=== PATIENT | female | born 1945 | race Caucasian/White ===

== ENCOUNTER 2017-09-18 20:21 | Emergency (ER) | payer OTHER ==
[~2017-09-18] VITALS: Ht 162.6 cm; Wt 73.0 kg
[~2017-09-18 20:21] MED LIST: CALC500 PO; LISI-589 PO; TAB-TAB PO; VYTO10TA29 PO
[2017-09-18 20:41] VITALS: BP 159/76; PULSE 95; RESP 18; TEMP 98.1; O2SAT 97
[2017-09-18] MEDS ORDERED: PRED20 PO (21:02)
[2017-09-18] MEDS ORDERED: PERC10TA27 PO (21:02)
--- NOTE | 2017-09-18 21:03 | PD ---
HPI Chief Complaint: Pain: Acute or Chronic Time Seen by Provider: 20:48 Travel History International Travel<30 days: No Contact w/Intl Traveler<30days: No Traveled to known affect area: No History of Present Illness HPI Patient is a 72-year-old female presents emergency department for evaluation of right hand numbness and tingling burning pain for the past day or so. Patient states to exacerbated whenever she tries to move her fingers. 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 She states this happened to her once in the past and is actually referred to a hand surgeon is a thought she might have carpal tunnel. She did well without surgery. States the pain is intermittent, fairly severe, not associated with any injury, no fevers no nausea no vomiting no weakness PFSH Past Medical History Blood Disorders: No Cancer: Yes Cardiovascular Problems: Yes High Cholesterol: Yes Genitourinary: No Hypertension: Yes Immune Disorder: No Musculoskeletal: No Neurologic: No Psychiatric: No Reproductive: No Respiratory: No Radiation Therapy: Yes (35 TREATMENTS ) ?: Not Past Surgical History Abdominal Surgery: Yes (APPENDECTOMY 1994) Appendectomy: Yes Cardiac Surgery: No Ear Surgery: No Endocrine Surgery: No Eye Surgery: No Genitourinary Surgery: Yes (ILEOSTOMY 1994) Gynecologic Surgery: Yes (HYSTERECTOMY 1994) Hysterectomy: Yes Oral Surgery: No Tonsillectomy: Yes Social History Alcohol Use: No Tobacco Use: No Substance Use: No Allergies-Medications (Allergen,Severity, Reaction): Coded Allergies: metronidazole (Unverified Allergy, Severe, EYE/MOUTH SWELLING, 09/18/17) naproxen (Unverified Allergy, Severe, EYE/MOUTH SWELLING, 09/18/17) Reported Meds & Prescriptions Reported Meds & Active Scripts Active Percocet (Oxycodone-Acetaminophen) 10-325 mg Tab 1 Tab PO Q6H PRN Prednisone 20 Mg Tab 60 Mg PO DAILY 5 Days Reported Omeprazole 20 Mg Tab 20 Mg PO DAILY Amlodipine (Amlodipine Besylate) 5 Mg Tab 5 Mg PO DAILY Lisinopril 40 Mg Tab 40 Mg PO DAILY Review of Systems Except as stated in HPI: all other systems reviewed are Neg Physical Exam Narrative GENERAL: Well-nourished, well-developed patient. SKIN: Focused skin assessment warm/dry. HEAD: Normocephalic. EYES: No scleral icterus. No injection or drainage. NECK: Supple, trachea midline. No JVD or lymphadenopathy. CARDIOVASCULAR: Regular rate and rhythm without murmurs, gallops, or rubs. RESPIRATORY: Breath sounds equal bilaterally. No accessory muscle use. GASTROINTESTINAL: Abdomen soft, non-tender, nondistended. MUSCULOSKELETAL: No cyanosis, or edema. There is no swelling no bony tenderness to the right hand or wrist, no bony tenderness of the right elbow. There is no gross deformity. Her compartments are soft. Cap refill is brisk in all 5 digits but there is some numbness and tingling that reported though she does have intact sensation to light touch. Tinel sign was negative but her Phalen's was positive. BACK: Nontender without obvious deformity. No CVA tenderness. Data Data Last Documented VS Vital Signs Date Time Temp Pulse Resp B/P (MAP) Pulse Ox O2 Delivery O2 Flow Rate FiO2 09/18/17 21:31 94 16 151/74 (99) 96 09/18/17 20:41 98.1 Orders Orders Oxycodone-Acetamin 5-325 Mg (Percocet (09/18/17 21:15) Ed Discharge Order (09/18/17 21:03) MDM Medical Decision Making Medical Screen Exam Complete: Yes Emergency Medical Condition: Yes Differential Diagnosis Carpal tunnel, ulnar tunnel, acute fracture highly unlikely. Narrative Course Patient room to the emergency department, sign symptoms consistent with carpal tunnel syndrome of the right hand and wrist. She has no symptoms proximal to the wrist. Will place on empiric steroids, pain medicine and referred to hand surgery. There is no indication further workup this time. Patient does have a wrist brace at home and she is encouraged to wear it as much as possible. She is stable for discharge Diagnosis Primary Impression: Carpal tunnel syndrome of right wrist Referrals: Liyah Jacob MD Med/Other Pt SpecificInfo: Prescription(s) given Scripts Oxycodone-Acetaminophen (Percocet) 10-325 mg Tab 1 TAB PO Q6H Y for PAIN, #10 TAB 0 Refills Prov: Tariq Marquis MD 09/18/17 Prednisone (Prednisone) 20 Mg Tab 60 MG PO DAILY for 5 Days, #15 TAB 0 Refills Prov: Tariq Marquis MD 09/18/17 Disposition: 01 DISCHARGE HOME Condition: Stable Tariq Marquis MD Sep 18, 2017 21:03
[2017-09-18] MEDS ORDERED: oxyCODONE/ACETAMINOPHEN 5 MG/325 MG TAB PO ONE (21:15)
[2017-09-18] MEDS ORDERED: OMEP20TA93 PO (21:16)
[2017-09-18] MEDS ORDERED: LISI40TA PO (21:16)
[2017-09-18] MEDS ORDERED: AMLO5TAB2 PO (21:16)
[2017-09-18 21:31] VITALS: BP 151/74
== END 2017-09-18 22:29 | disposition home or self-care (01) ==
LOC: PHED 20:21
DX: G56.01 Carpal tunnel syndrome, right upper limb (principal)
CPT/HCPCS: 99283

== ENCOUNTER 2018-04-16 18:25 | Inpatient (IN) ==
[2018-04-16] MEDS ORDERED: Morphine Sulfate Inj 2 MG/ML Vial IV.PUSH ONE (19:03)
[2018-04-16] MEDS ORDERED: Sod Chloride 0.9% Inj 1,000 ML IV.SIG ONE (19:03)
[2018-04-16 19:15] LABS: Baso # (Auto) 0.1 th/mm3 (0.0-0.2); Baso % (Auto) 0.5 % (0.0-2.0); Eos # (Auto) 0.1 th/mm3 (0.0-0.4); Eos % (Auto) 0.6 % (0.0-4.0); Hematocrit 42.7 % (35.0-46.0); Hemoglobin 14.2 gm/dL (11.6-15.3); Lymph # (Auto) 1.4 th/mm3 (1.0-4.8); Lymph % (Auto) 13.6 % (9.0-44.0); Mean Corpuscular HGB Conc 33.2 % (32.0-36.0); Mean Corpuscular Hemoglobin 28.9 pg (27.0-34.0); Mean Platelet Volume 7.4 fL (7.0-11.0); Mono # (Auto) 1.2 th/mm3 (0.0-0.9); Mono % (Auto) 11.3 % (0.0-8.0); Neut # (Auto) 7.8 th/mm3 (1.8-7.7); Platelet Count 216 th/mm3 (150-450); Red Blood Count 4.91 mil/mm3 (4.00-5.30); Red Cell Distribution Width 14.2 % (11.6-17.2); White Blood Count 10.6 th/mm3 (4.0-11.0)
[2018-04-16 19:25] LABS: Chloride 106 meq/L (98-107); Potassium 3.9 meq/L (3.5-5.1); Sodium 140 meq/L (136-145)
[2018-04-16 19:25] LABS: Clarity,Urine Clear (Clear); Glucose,Urine (UA) Negative (Negative); Leukocyte Esterase,Urine Trace (Negative); Nitrite,Urine Positive (Negative); Specific Gravity,Urine Greater/Equal 1.030 (1.002-1.035)
[2018-04-16 19:30] LABS: Bilirubin,Urine Negative (Negative); Color,Urine Orange (Yellw/Straw); Ictotest,Urine Negative (Negative)
[2018-04-16 19:30] LABS: Activated Partial Thrombo Time 24.5 sec (24.3-30.1); Calcium 9.3 mg/dL (8.5-10.1); INR 1.1 Ratio; Prothrombin Time 11.1 sec (9.8-11.6)
[2018-04-16] MEDS ORDERED: HYDROmorphone PF Inj 1 MG/ML Ampul IV.PUSH ONE (19:30)
[2018-04-16 19:31] LABS: Albumin 3.3 g/dL (3.4-5.0); Amylase 59 U/L (25-115); Anion Gap 11 meq/L (5-15); Blood Urea Nitrogen 16 mg/dL (7-18); Carbon Dioxide 23.1 meq/L (21.0-32.0); Glucose,Random 115 mg/dL (74-106); Lipase 196 U/L (73-393)
[2018-04-16 19:32] LABS: RBC,Urine 0-3 /hpf (0-3); Squamous Epithelial Cell,Urine 0-5 /hpf (0-5); WBC,Urine 21-50 /hpf (0-5)
[2018-04-16 19:33] LABS: Alanine Aminotransferase 25 U/L (10-53); Aspartate Aminotransferase 22 U/L (15-37)
[2018-04-16 19:33] LABS: Bacteria,Urine Few /hpf; Mucus,Urine Many /lpf (Occasional)
[2018-04-16 19:34] LABS: Glomerular Filtration Rate 49 mL/min (>89)
[2018-04-16 19:35] LABS: Total Protein 7.8 g/dL (6.4-8.2)
[2018-04-16 19:36] LABS: Alkaline Phosphatase 68 U/L (45-117)
[2018-04-16 19:44] LABS: Creatine Kinase 47 U/L (26-192)
[2018-04-16] MEDS ORDERED: HYDROmorphone PF Inj 2 MG/ML Vial IV.PUSH ONE (19:45)
--- NOTE | 2018-04-16 20:32 | CT ---
EXAM DATE: 04/16/2018 7:45 PM EDT AGE/SEX: 72 years / Female INDICATIONS: Chest pain. Shortness of breath. Evaluate for embolism. CLINICAL DATA: This is the patient's initial encounter. Patient reports that signs and symptoms have been present for 1 day and indicates a pain score of 10/10. MEDICAL/SURGICAL HISTORY: Carcinoma, breast. Hypertension. None. RADIATION DOSE: 12.96 CTDI (mGy) COMPARISON: No prior exams available for comparison. TECHNIQUE: Volumetric scanning was performed using a multi-row detector CT scanner during bolus infu judie of 100 ml Omnipaque 350 (iohexol) nonionic water-soluble contrast as a cumulative dose for mult iple exams. The data was post processed with a variety of visualization algorithms including full vol ume maximum intensity projection and sliding thin slab reformation. Using automated exposure control and adjustment of the mA and/or kV according to patient size, radiation dose was kept as low as reaso nably achievable to obtain optimal diagnostic quality images. DICOM format image data is available e lectronically for review and comparison. FINDINGS: Pulmonary Arteries: There is fairly extensive pulmonary emboli seen in the pulmonary supplying the r ight upper lobe, right middle lobe and right basilar segments. There is moderate emboli seen in the p ulmonary artery supplying the left upper lobe and at the basilar segments of the left lower lobe. Lung: There is increased density seen in the posterior lower lobes bilaterally being more prominent on the right likely related to atelectasis or consolidation. Effusion: There are minimal bilateral pleural effusions. Mediastinum: No evidence of mediastinal or hilar adenopathy. Other: The axilla is unremarkable. There is mild hiatal hernia present. CONCLUSION: 1. Bilateral pulmonary emboli. 2. Minimal bilateral pleural effusions. 3. Mild hiatal hernia. Electronically signed by: Koffi Silva MD 04/16/2018 8:31 PM EDT
--- NOTE | 2018-04-16 20:38 | CT ---
EXAM DATE: 04/16/2018 7:45 PM EDT AGE/SEX: 72 years / Female INDICATIONS: Right upper quadrant pain. CLINICAL DATA: This is the patient's initial encounter. Patient reports that signs and symptoms have been present for 1 day and indicates a pain score of 10/10. MEDICAL/SURGICAL HISTORY: Carcinoma, breast. Ulcerative colitis. Hypertension. Hysterectomy. Appendectomy. Ileostomy. ORAL CONTRAST: No oral contrast ingested. RADIATION DOSE: 15.62 CTDI (mGy) COMPARISON: POI, CT ABDOMEN AND PELVIS W/ CONTRAST, 08/07/2017. . TECHNIQUE: Multiple contiguous axial images were obtained through the abdomen and pelvis following b olus infusion of 100 ml Omnipaque 350 (iohexol) nonionic water-soluble contrast as a cumulative dos e for multiple exams. No oral contrast ingested. Using automated exposure control and adjustment of the mA and/or kV according to patient size, radiation dose was kept as low as reasonably achievable t o obtain optimal diagnostic quality images. DICOM format image data is available electronically for review and comparison. FINDINGS: LOWER LUNGS: Please see CT pulmonary angiogram report. LIVER: The liver has a homogeneous density without space-occupying lesion. There is no dilation of t he biliary tree. SPLEEN: Homogeneous density without enlargement. PANCREAS: Unremarkable without mass or calcification. KIDNEYS: Kidneys demonstrate symmetrical enhancement without radiopaque renal calculi or hydronephro sis. There is a dominant 3.4 cm cyst in the superior pole the right kidney. Multiple additional subce ntimeter cystic lesions are too small to fully characterize. ADRENAL GLANDS: Unremarkable. AORTA: Annemarie-aneurysmal. BOWEL/MESENTERY: Postsurgical features of near total colectomy with right lower quadrant ileostomy i n place. Bowel loops are normal in caliber without evidence for obstruction. There is no free fluid o r drainable fluid collections. There is no free air or pneumatosis. ABDOMINAL WALL: Diastasis recti. RETROPERITONEUM: No evidence of adenopathy in the retrocrural, para-aortic, or deep pelvic regions. BLADDER: Nearly completely decompressed. REPRODUCTIVE: Uterus is surgically absent. BONY STRUCTURES: Degenerative spondylosis of the lumbar spine with grade 1 retrolisthesis of L2 on L 3 and L5 on S1. CONCLUSION: 1. No acute CT findings to explain patient's right upper quadrant abdominal pain. 2. Status post near total colectomy with right lower quadrant ileostomy in place. No evidence for usman wel obstruction. 3. Dominant 3.4 cm cyst in the superior pole the right kidney with additional subcentimeter bilatera l renal cystic lesions which are too small to fully characterize. 4. Additional ancillary findings, as above. Electronically signed by: Sawyer Perrin MD 04/16/2018 8:37 PM EDT
[2018-04-16] MEDS ORDERED: Heparin Drip 25,000 UNIT/250 ML BAG IV.CONT PRN (20:53)
[2018-04-16] MEDS ORDERED: Heparin 10,000 UNITS/10 ML Vial (for IV use) IV.PUSH STA (20:53)
--- NOTE | 2018-04-16 21:01 | ED ---
HPI General Chief complaint: Abdominal Pain Stated complaint: Abd Pain Time Seen by Provider: 04/16/18 18:51 History of Present Illness HPI narrative: 72 female here for right upper quadrant pain since yesterday evening. Pain is sharp, stabbing, comes and goes, worse when she takes deep inspiration, nothing makes it better, no relation to food or movement. She does not remember eating anything out of the ordinary, no nausea or vomiting, no palpitation or sweating. Patient has history of hypertension, dyslipidemia, she has ileostomy bag was placed 1994 for ulcerative colitis, she also had a hysterectomy done 1994. She did not notice any change in the stool color or consistency or frequency. Related Data Home Medications Medication Instructions Recorded Confirmed amlodipine 5 mg PO HS 04/02/18 04/16/18 pravastatin 40 mg PO HS 04/02/18 04/16/18 latanoprost 1 drp OPHTHALMIC (EYE) QPM 04/16/18 04/16/18 Previous Rx's Medication Instructions Recorded apixaban [Eliquis] 5 mg PO BID #70 tab 04/18/18 hydrocodone-acetaminophen [[place]] 1 tab PO Q6H PRN #12 tab 04/18/18 Allergies Allergy/AdvReac Type Severity Reaction Status Date / Time metronidazole Allergy Severe EYE/MOUTH Verified 04/16/18 18:30 SWELLING Review of Systems ROS: all other systems reviewed are negative [facility] Medical History Medical History Breast cancer, left (Acute) Glaucoma (Acute) HTN (hypertension) (Acute) History of ulcerative colitis (Acute) Ileostomy in place (Acute) Paget disease of breast (Acute) Surgical History Surgical History History of appendectomy (Acute) History of cataract surgery (Acute) History of hysterectomy (Acute) History of tonsillectomy (Acute) Hx of tonsillectomy (Acute) Family History Family History Father History of lung cancer Mother History of stroke Social History Social History Substance History: No History of Abuse Second Hand Smoke Exposure: No Smoking Status: Never smoker How Often Do You Have a Drink Containing Alcohol: Never Recent Travel in [facility] within the Last 8 Weeks: No Recent Out of Country Travel within the Last 8 Weeks: No Immunization History Tetanus Immunization: <5 Years Exam Narrative Exam Narrative: GENERAL: Alert oriented x3 no acute distress. SKIN: Focused skin assessment warm/dry. HEAD: Atraumatic. Normocephalic. EYES: Pupils equal and round. No scleral icterus. No injection or drainage. ENT: No nasal bleeding or discharge. Mucous membranes pink and moist. NECK: Trachea midline. No JVD. CARDIOVASCULAR: Regular rate and rhythm. No murmur appreciated. RESPIRATORY: No accessory muscle use. Clear to auscultation. Breath sounds equal bilaterally. GASTROINTESTINAL: Abdomen soft, non-tender, nondistended. Hepatic and splenic margins not palpable. MUSCULOSKELETAL: No obvious deformities. No clubbing. No cyanosis. No edema. NEUROLOGICAL: Awake and alert. No obvious cranial nerve deficits. Motor grossly within normal limits. Normal speech. PSYCHIATRIC: Appropriate mood and affect; insight and judgment normal. Course Initial Documented Vital Signs Temperature 98.4 F 04/16/18 18:28 Pulse Rate 118 H 04/16/18 18:28 Respiratory Rate 20 04/16/18 18:28 Blood Pressure 139/71 04/16/18 18:28 Pulse Oximetry 92 L 04/16/18 18:28 Last Documented Vital Signs Temperature 96.3 F L 04/18/18 12:00 Pulse Rate 88 04/18/18 12:00 Respiratory Rate 18 04/18/18 12:00 Blood Pressure 121/77 04/18/18 12:00 Pulse Oximetry 92 L 04/18/18 12:00 Medical Decision Making MDM Narrative Medical decision making narrative: 72 female right upper quadrant pain, vitals remarkable for tachycardia, hypoxia, CT abdomen is unmarkable, CTA chest shows bilateral PE right more than left with Minimal bilateral pleural effusions, no evidence of RV strain on CAT scan, troponin and BNP are WNL, patient is not hypotensive. Patient had significant amount of pain in the right upper quadrant that required morphine and dilaudid, patient will be started on heparin drip and admitted for further management. Medical Screen Exam Complete: Yes Emergency Medical Condition: Yes Lab Data Result diagrams: 04/18/18 05:25 04/17/18 03:34 Lab Results 04/16/18 04/16/18 04/16/18 Range/Units 19:10 19:10 19:10 CBC w Diff Auto diff final WBC 10.6 (4.0-11.0) th/mm3 RBC 4.91 (4.00-5.30) mil/mm3 Hgb 14.2 (11.6-15.3) gm/dL Hct 42.7 (35.0-46.0) % MCV 87.0 (80.0-100.0) fL MCH 28.9 (27.0-34.0) pg MCHC 33.2 (32.0-36.0) % RDW 14.2 (11.6-17.2) % Plt Count 216 (150-450) th/mm3 MPV 7.4 (7.0-11.0) fL Neut % (Auto) 74.0 H (16.0-70.0) % Lymph % (Auto) 13.6 (9.0-44.0) % [place] % (Auto) 11.3 H (0.0-8.0) % Eos % (Auto) 0.6 (0.0-4.0) % Baso % (Auto) 0.5 (0.0-2.0) % Neut # (Auto) 7.8 H (1.8-7.7) th/mm3 Lymph # (Auto) 1.4 (1.0-4.8) th/mm3 [place] # (Auto) 1.2 H (0.0-0.9) th/mm3 Eos # (Auto) 0.1 (0.0-0.4) th/mm3 Baso # (Auto) 0.1 (0.0-0.2) th/mm3 WBC Differential . Differential Comment . PT 11.1 (9.8-11.6) sec INR 1.1 Ratio APTT 24.5 (24.3-30.1) sec D-Dimer Quant (PE/DVT) (0.00-0.50) mg/L FEU Protein C Antigen Protein S Activity Factor V Leiden Mutat Factor V Leiden Interp Fact V Leiden Review By Sodium 140 (136-145) meq/L Potassium 3.9 (3.5-5.1) meq/L Chloride 106 (98-107) meq/L Carbon Dioxide 23.1 (21.0-32.0) meq/L Anion Gap 11 (5-15) meq/L BUN 16 (7-18) mg/dL Creatinine 1.10 H (0.50-1.00) mg/dL Estimated GFR 49 L (>89) mL/min Random Glucose 115 H (74-106) mg/dL Lactic Acid (0.4-2.0) mmol/L Calcium 9.3 (8.5-10.1) mg/dL Total Bilirubin 0.9 (0.2-1.0) mg/dL AST 22 (15-37) U/L ALT 25 (10-53) U/L Alkaline Phosphatase 68 (45-117) U/L Total Creatine Kinase 47 (26-192) U/L Troponin I Less than 0.02 L (0.02-0.05) ng/mL B-Natriuretic Peptide (0-100) pg/mL Total Protein 7.8 (6.4-8.2) g/dL Albumin 3.3 L (3.4-5.0) g/dL Amylase 59 (25-115) U/L Lipase 196 (73-393) U/L Urine Color (Yellw/Straw) Urine Clarity (Clear) Urine pH (5.0-8.5) Ur Specific [place] (1.002-1.035) Urine Protein (Neg-Trace) mg/dL Urine Glucose (UA) (Negative) mg/dL Urine Ketones (Negative) mg/dL Urine Occult Blood (Negative) Urine Nitrate (Negative) Urine Bilirubin (Negative) Urine Ictotest (Negative) Urine Urobilinogen (Less than 2) mg/dL Ur Leukocyte Esterase (Negative) Urine RBC (0-3) /hpf Urine WBC (0-5) /hpf Urine WBC Clumps (None) Ur Squamous Epith Cells (0-5) /hpf Urine Bacteria (None) /hpf Urine Mucus (Occasional) /lpf Micro UA Comment Ur Microscopic Review Urine Culture Comments Anti-Cardiolipin IgG Ab Anti-Cardiolipin IgM Ab 04/16/18 04/16/18 04/16/18 Range/Units 19:10 19:10 19:15 CBC w Diff WBC (4.0-11.0) th/mm3 RBC (4.00-5.30) mil/mm3 Hgb (11.6-15.3) gm/dL Hct (35.0-46.0) % MCV (80.0-100.0) fL MCH (27.0-34.0) pg MCHC (32.0-36.0) % RDW (11.6-17.2) % Plt Count (150-450) th/mm3 MPV (7.0-11.0) fL Neut % (Auto) (16.0-70.0) % Lymph % (Auto) (9.0-44.0) % [place] % (Auto) (0.0-8.0) % Eos % (Auto) (0.0-4.0) % Baso % (Auto) (0.0-2.0) % Neut # (Auto) (1.8-7.7) th/mm3 Lymph # (Auto) (1.0-4.8) th/mm3 [place] # (Auto) (0.0-0.9) th/mm3 Eos # (Auto) (0.0-0.4) th/mm3 Baso # (Auto) (0.0-0.2) th/mm3 WBC Differential Differential Comment PT (9.8-11.6) sec INR Ratio APTT (24.3-30.1) sec D-Dimer Quant (PE/DVT) 12.73 H (0.00-0.50) mg/L FEU Protein C Antigen Protein S Activity Factor V Leiden Mutat Factor V Leiden Interp Fact V Leiden Review By Sodium (136-145) meq/L Potassium (3.5-5.1) meq/L Chloride (98-107) meq/L Carbon Dioxide (21.0-32.0) meq/L Anion Gap (5-15) meq/L BUN (7-18) mg/dL Creatinine (0.50-1.00) mg/dL Estimated GFR (>89) mL/min Random Glucose (74-106) mg/dL Lactic Acid 1.6 (0.4-2.0) mmol/L Calcium (8.5-10.1) mg/dL Total Bilirubin (0.2-1.0) mg/dL AST (15-37) U/L ALT (10-53) U/L Alkaline Phosphatase (45-117) U/L Total Creatine Kinase (26-192) U/L Troponin I (0.02-0.05) ng/mL B-Natriuretic Peptide (0-100) pg/mL Total Protein (6.4-8.2) g/dL Albumin (3.4-5.0) g/dL Amylase (25-115) U/L Lipase (73-393) U/L Urine Color [place] H (Yellw/Straw) Urine Clarity Clear (Clear) Urine pH 6.0 (5.0-8.5) Ur Specific [place] Greater/equal 1.030 (1.002-1.035) Urine Protein 100 H (Neg-Trace) mg/dL Urine Glucose (UA) Negative (Negative) mg/dL Urine Ketones 15 H (Negative) mg/dL Urine Occult Blood Moderate H (Negative) Urine Nitrate Positive H (Negative) Urine Bilirubin Negative (Negative) Urine Ictotest Negative (Negative) Urine Urobilinogen 1.0 (Less than 2) mg/dL Ur Leukocyte Esterase Trace H (Negative) Urine RBC 0-3 (0-3) /hpf Urine WBC 21-50 H (0-5) /hpf Urine WBC Clumps Few H (None) Ur Squamous Epith Cells 0-5 (0-5) /hpf Urine Bacteria Few H (None) /hpf Urine Mucus Many H (Occasional) /lpf Micro UA Comment Culture indicated Ur Microscopic Review Microscopic reviewed Urine Culture Comments Culture indicated Anti-Cardiolipin IgG Ab Anti-Cardiolipin IgM Ab 04/16/18 04/17/18 04/17/18 Range/Units 19:15 03:34 03:34 CBC w Diff Auto diff final WBC 10.8 (4.0-11.0) th/mm3 RBC 4.28 (4.00-5.30) mil/mm3 Hgb 12.3 (11.6-15.3) gm/dL Hct 37.5 (35.0-46.0) % MCV 87.6 (80.0-100.0) fL MCH 28.8 (27.0-34.0) pg MCHC 32.9 (32.0-36.0) % RDW 14.3 (11.6-17.2) % Plt Count 174 (150-450) th/mm3 MPV 7.3 (7.0-11.0) fL Neut % (Auto) 79.5 H (16.0-70.0) % Lymph % (Auto) 10.1 (9.0-44.0) % [place] % (Auto) 9.4 H (0.0-8.0) % Eos % (Auto) 0.0 (0.0-4.0) % Baso % (Auto) 1.0 (0.0-2.0) % Neut # (Auto) 8.6 H (1.8-7.7) th/mm3 Lymph # (Auto) 1.1 (1.0-4.8) th/mm3 [place] # (Auto) 1.0 H (0.0-0.9) th/mm3 Eos # (Auto) 0.0 (0.0-0.4) th/mm3 Baso # (Auto) 0.1 (0.0-0.2) th/mm3 WBC Differential . Differential Comment . PT 11.7 H (9.8-11.6) sec INR 1.2 Ratio APTT 116.1 H* D (24.3-30.1) sec D-Dimer Quant (PE/DVT) (0.00-0.50) mg/L FEU Protein C Antigen Protein S Activity Factor V Leiden Mutat Factor V Leiden Interp Fact V Leiden Review By Sodium (136-145) meq/L Potassium (3.5-5.1) meq/L Chloride (98-107) meq/L Carbon Dioxide (21.0-32.0) meq/L Anion Gap (5-15) meq/L BUN (7-18) mg/dL Creatinine (0.50-1.00) mg/dL Estimated GFR (>89) mL/min Random Glucose (74-106) mg/dL Lactic Acid (0.4-2.0) mmol/L Calcium (8.5-10.1) mg/dL Total Bilirubin (0.2-1.0) mg/dL AST (15-37) U/L ALT (10-53) U/L Alkaline Phosphatase (45-117) U/L Total Creatine Kinase (26-192) U/L Troponin I (0.02-0.05) ng/mL B-Natriuretic Peptide 24 (0-100) pg/mL Total Protein (6.4-8.2) g/dL Albumin (3.4-5.0) g/dL Amylase (25-115) U/L Lipase (73-393) U/L Urine Color (Yellw/Straw) Urine Clarity (Clear) Urine pH (5.0-8.5) Ur Specific [place] (1.002-1.035) Urine Protein (Neg-Trace) mg/dL Urine Glucose (UA) (Negative) mg/dL Urine Ketones (Negative) mg/dL Urine Occult Blood (Negative) Urine Nitrate (Negative) Urine Bilirubin (Negative) Urine Ictotest (Negative) Urine Urobilinogen (Less than 2) mg/dL Ur Leukocyte Esterase (Negative) Urine RBC (0-3) /hpf Urine WBC (0-5) /hpf Urine WBC Clumps (None) Ur Squamous Epith Cells (0-5) /hpf Urine Bacteria (None) /hpf Urine Mucus (Occasional) /lpf Micro UA Comment Ur Microscopic Review Urine Culture Comments Anti-Cardiolipin IgG Ab Anti-Cardiolipin IgM Ab 04/17/18 04/17/18 04/17/18 Range/Units 03:34 07:10 12:20 CBC w Diff WBC (4.0-11.0) th/mm3 RBC (4.00-5.30) mil/mm3 Hgb (11.6-15.3) gm/dL Hct (35.0-46.0) % MCV (80.0-100.0) fL MCH (27.0-34.0) pg MCHC (32.0-36.0) % RDW (11.6-17.2) % Plt Count (150-450) th/mm3 MPV (7.0-11.0) fL Neut % (Auto) (16.0-70.0) % Lymph % (Auto) (9.0-44.0) % [place] % (Auto) (0.0-8.0) % Eos % (Auto) (0.0-4.0) % Baso % (Auto) (0.0-2.0) % Neut # (Auto) (1.8-7.7) th/mm3 Lymph # (Auto) (1.0-4.8) th/mm3 [place] # (Auto) (0.0-0.9) th/mm3 Eos # (Auto) (0.0-0.4) th/mm3 Baso # (Auto) (0.0-0.2) th/mm3 WBC Differential Differential Comment PT (9.8-11.6) sec INR Ratio APTT 68.9 H D 54.2 H D (24.3-30.1) sec D-Dimer Quant (PE/DVT) (0.00-0.50) mg/L FEU Protein C Antigen Protein S Activity Factor V Leiden Mutat Factor V Leiden Interp Fact V Leiden Review By Sodium 141 (136-145) meq/L Potassium 3.8 (3.5-5.1) meq/L Chloride 106 (98-107) meq/L Carbon Dioxide 25.7 (21.0-32.0) meq/L Anion Gap 9 (5-15) meq/L BUN 15 (7-18) mg/dL Creatinine 0.74 (0.50-1.00) mg/dL Estimated GFR 77 L (>89) mL/min Random Glucose 122 H (74-106) mg/dL Lactic Acid (0.4-2.0) mmol/L Calcium 8.4 L D (8.5-10.1) mg/dL Total Bilirubin (0.2-1.0) mg/dL AST (15-37) U/L ALT (10-53) U/L Alkaline Phosphatase (45-117) U/L Total Creatine Kinase (26-192) U/L Troponin I (0.02-0.05) ng/mL B-Natriuretic Peptide (0-100) pg/mL Total Protein (6.4-8.2) g/dL Albumin (3.4-5.0) g/dL Amylase (25-115) U/L Lipase (73-393) U/L Urine Color (Yellw/Straw) Urine Clarity (Clear) Urine pH (5.0-8.5) Ur Specific [place] (1.002-1.035) Urine Protein (Neg-Trace) mg/dL Urine Glucose (UA) (Negative) mg/dL Urine Ketones (Negative) mg/dL Urine Occult Blood (Negative) Urine Nitrate (Negative) Urine Bilirubin (Negative) Urine Ictotest (Negative) Urine Urobilinogen (Less than 2) mg/dL Ur Leukocyte Esterase (Negative) Urine RBC (0-3) /hpf Urine WBC (0-5) /hpf Urine WBC Clumps (None) Ur Squamous Epith Cells (0-5) /hpf Urine Bacteria (None) /hpf Urine Mucus (Occasional) /lpf Micro UA Comment Ur Microscopic Review Urine Culture Comments Anti-Cardiolipin IgG Ab Anti-Cardiolipin IgM Ab 10/11/18 10/11/18 10/12/18 Range/Units 12:20 18:40 05:25 CBC w Diff WBC 6.5 (4.0-11.0) th/mm3 RBC 4.19 (4.00-5.30) mil/mm3 Hgb 11.9 (11.6-15.3) gm/dL Hct 36.8 (35.0-46.0) % MCV 87.7 (80.0-100.0) fL MCH 28.4 (27.0-34.0) pg MCHC 32.4 (32.0-36.0) % RDW 14.0 (11.6-17.2) % Plt Count 211 (150-450) th/mm3 MPV 7.9 (7.0-11.0) fL Neut % (Auto) (16.0-70.0) % Lymph % (Auto) (9.0-44.0) % [place] % (Auto) (0.0-8.0) % Eos % (Auto) (0.0-4.0) % Baso % (Auto) (0.0-2.0) % Neut # (Auto) (1.8-7.7) th/mm3 Lymph # (Auto) (1.0-4.8) th/mm3 [place] # (Auto) (0.0-0.9) th/mm3 Eos # (Auto) (0.0-0.4) th/mm3 Baso # (Auto) (0.0-0.2) th/mm3 WBC Differential Differential Comment PT (9.8-11.6) sec INR Ratio APTT 47.1 H (24.3-30.1) sec D-Dimer Quant (PE/DVT) (0.00-0.50) mg/L FEU Protein C Antigen Cancelled Protein S Activity Cancelled Factor V Leiden Mutat Cancelled Factor V Leiden Interp Cancelled Fact V Leiden Review By Cancelled Sodium (136-145) meq/L Potassium (3.5-5.1) meq/L Chloride (98-107) meq/L Carbon Dioxide (21.0-32.0) meq/L Anion Gap (5-15) meq/L BUN (7-18) mg/dL Creatinine (0.50-1.00) mg/dL Estimated GFR (>89) mL/min Random Glucose (74-106) mg/dL Lactic Acid (0.4-2.0) mmol/L Calcium (8.5-10.1) mg/dL Total Bilirubin (0.2-1.0) mg/dL AST (15-37) U/L ALT (10-53) U/L Alkaline Phosphatase (45-117) U/L Total Creatine Kinase (26-192) U/L Troponin I (0.02-0.05) ng/mL B-Natriuretic Peptide (0-100) pg/mL Total Protein (6.4-8.2) g/dL Albumin (3.4-5.0) g/dL Amylase (25-115) U/L Lipase (73-393) U/L Urine Color (Yellw/Straw) Urine Clarity (Clear) Urine pH (5.0-8.5) Ur Specific [place] (1.002-1.035) Urine Protein (Neg-Trace) mg/dL Urine Glucose (UA) (Negative) mg/dL Urine Ketones (Negative) mg/dL Urine Occult Blood (Negative) Urine Nitrate (Negative) Urine Bilirubin (Negative) Urine Ictotest (Negative) Urine Urobilinogen (Less than 2) mg/dL Ur Leukocyte Esterase (Negative) Urine RBC (0-3) /hpf Urine WBC (0-5) /hpf Urine WBC Clumps (None) Ur Squamous Epith Cells (0-5) /hpf Urine Bacteria (None) /hpf Urine Mucus (Occasional) /lpf Micro UA Comment Ur Microscopic Review Urine Culture Comments Anti-Cardiolipin IgG Ab Cancelled Anti-Cardiolipin IgM Ab Cancelled 04/18/18 Range/Units 05:25 CBC w Diff WBC (4.0-11.0) th/mm3 RBC (4.00-5.30) mil/mm3 Hgb (11.6-15.3) gm/dL Hct (35.0-46.0) % MCV (80.0-100.0) fL MCH (27.0-34.0) pg MCHC (32.0-36.0) % RDW (11.6-17.2) % Plt Count (150-450) th/mm3 MPV (7.0-11.0) fL Neut % (Auto) (16.0-70.0) % Lymph % (Auto) (9.0-44.0) % [place] % (Auto) (0.0-8.0) % Eos % (Auto) (0.0-4.0) % Baso % (Auto) (0.0-2.0) % Neut # (Auto) (1.8-7.7) th/mm3 Lymph # (Auto) (1.0-4.8) th/mm3 [place] # (Auto) (0.0-0.9) th/mm3 Eos # (Auto) (0.0-0.4) th/mm3 Baso # (Auto) (0.0-0.2) th/mm3 WBC Differential Differential Comment PT (9.8-11.6) sec INR Ratio APTT 55.1 H (24.3-30.1) sec D-Dimer Quant (PE/DVT) (0.00-0.50) mg/L FEU Protein C Antigen Protein S Activity Factor V Leiden Mutat Factor V Leiden Interp Fact V Leiden Review By Sodium (136-145) meq/L Potassium (3.5-5.1) meq/L Chloride (98-107) meq/L Carbon Dioxide (21.0-32.0) meq/L Anion Gap (5-15) meq/L BUN (7-18) mg/dL Creatinine (0.50-1.00) mg/dL Estimated GFR (>89) mL/min Random Glucose (74-106) mg/dL Lactic Acid (0.4-2.0) mmol/L Calcium (8.5-10.1) mg/dL Total Bilirubin (0.2-1.0) mg/dL AST (15-37) U/L ALT (10-53) U/L Alkaline Phosphatase (45-117) U/L Total Creatine Kinase (26-192) U/L Troponin I (0.02-0.05) ng/mL B-Natriuretic Peptide (0-100) pg/mL Total Protein (6.4-8.2) g/dL Albumin (3.4-5.0) g/dL Amylase (25-115) U/L Lipase (73-393) U/L Urine Color (Yellw/Straw) Urine Clarity (Clear) Urine pH (5.0-8.5) Ur Specific [place] (1.002-1.035) Urine Protein (Neg-Trace) mg/dL Urine Glucose (UA) (Negative) mg/dL Urine Ketones (Negative) mg/dL Urine Occult Blood (Negative) Urine Nitrate (Negative) Urine Bilirubin (Negative) Urine Ictotest (Negative) Urine Urobilinogen (Less than 2) mg/dL Ur Leukocyte Esterase (Negative) Urine RBC (0-3) /hpf Urine WBC (0-5) /hpf Urine WBC Clumps (None) Ur Squamous Epith Cells (0-5) /hpf Urine Bacteria (None) /hpf Urine Mucus (Occasional) /lpf Micro UA Comment Ur Microscopic Review Urine Culture Comments Anti-Cardiolipin IgG Ab Anti-Cardiolipin IgM Ab Imaging Data Radiologist's impression: Abdomen/Pelvis CT 04/16/18 19:35 CONCLUSION: 1. No acute CT findings to explain patient's right upper quadrant abdominal pain. 2. Status post near total colectomy with right lower quadrant ileostomy in place. No evidence for bowel obstruction. 3. Dominant 3.4 cm cyst in the superior pole the right kidney with additional subcentimeter bilateral renal cystic lesions which are too small to fully characterize. 4. Additional ancillary findings, as above. Chest CTA 04/16/18 19:35 CONCLUSION: 1. Bilateral pulmonary emboli. 2. Minimal bilateral pleural effusions. 3. Mild hiatal hernia. Discharge Plan Discharge Disposition Patient Disposition: 30 Still Patient Discharge Condition Condition: Stable Discharge Order Discharge Orders: Discharge Order (Routine); Ordered 04/18/18 Ordered By: Arias Valiente Discharge Details Anticipated Discharge Date: 04/18/18 Discharge Comment: Okay to discharge patient home after patient gets p.o. Eliquis Physicians Team ED Provider: Zafar Pena Primary Care Provider: Radha Kraft Attending Provider: Koby Horan Other Providers: Black Bill ; Jaxson Tesfaye ; [employer] Status ED Status: Left Department Discharge Information Discharge Date/Time: 04/16/18 22:56
[2018-04-16] MEDS ORDERED: Bisacodyl 10 MG Supp RECTAL PRN (21:30)
[2018-04-16] MEDS ORDERED: Acetaminophen 325 MG Tablet PO PRN (21:30)
--- NOTE | 2018-04-16 22:29 | ECG ---
Date Performed: 04/16/2018 Time Performed: 19:17:39 PTAGE: 72 years EKG: SINUS TACHYCARDIA ABNORMAL RHYTHM ECG NO PREVIOUS TRACING DOCTOR: Chavez Newton Interpretating Date/Time 04/16/2018 22:28:12
[2018-04-17 03:49] LABS: Baso # (Auto) 0.1 th/mm3 (0.0-0.2); Hematocrit 37.5 % (35.0-46.0); Hemoglobin 12.3 gm/dL (11.6-15.3); Lymph # (Auto) 1.1 th/mm3 (1.0-4.8); Lymph % (Auto) 10.1 % (9.0-44.0); Mean Corpuscular HGB Conc 32.9 % (32.0-36.0); Mean Corpuscular Hemoglobin 28.8 pg (27.0-34.0); Mean Corpuscular Volume 87.6 fL (80.0-100.0); Mean Platelet Volume 7.3 fL (7.0-11.0); Mono % (Auto) 9.4 % (0.0-8.0); Neut # (Auto) 8.6 th/mm3 (1.8-7.7); Neut % (Auto) 79.5 % (16.0-70.0); Platelet Count 174 th/mm3 (150-450); Red Blood Count 4.28 mil/mm3 (4.00-5.30); Red Cell Distribution Width 14.3 % (11.6-17.2); White Blood Count 10.8 th/mm3 (4.0-11.0)
[2018-04-17 03:54] LABS: Potassium 3.8 meq/L (3.5-5.1)
[2018-04-17 04:14] LABS: Calcium 8.4 mg/dL (8.5-10.1); Carbon Dioxide 25.7 meq/L (21.0-32.0)
[2018-04-17 04:18] LABS: INR 1.2 Ratio; Prothrombin Time 11.7 sec (9.8-11.6)
[2018-04-17 04:21] LABS: Activated Partial Thrombo Time 116.1 sec (24.3-30.1)
[2018-04-17] MEDS: Senna/Docusate Sodium 8.6/50 MG Tablet PO SCH ×2 (08:46→20:47)
--- NOTE | 2018-04-17 09:13 | P.HP ---
History of Present Illness Primary Care Physician: Radha Kraft MD Chief Complaint: Shortness of breath, chest pain History of Present Illness: 72-year-old female with known history of hypertension, hyperlipidemia , glaucoma, ulcerative colitis, arthritis who presented to the hospital because of right-sided chest pain, shortness of breath which progressively getting worse over the last day and a half. She indicates that is been more difficult to exert herself due to the shortness of breath. Every time she took a deep breath, cough she has severe pain in her right chest region. Patient did come to the emergency department and had workup done and found to have extensive bilateral pulmonary emboli's. Is recommended by the ER physician that the patient be admitted on IV heparin for further evaluation and management. Patient states that she used to have a very active lifestyle with going to [employer], exercising regularly and then her arthritis started bothering her more. She went to orthopedic doctor who started doing intra-articular injections of her left knee. The last injection was 2 weeks ago. On Saturday last week while she was out walking she did trip over a branch and fell down and hit her head. Patient did come to emergency department at that time and she states that she had a good eye contusion. Patient states that she has been more sedentary since then by not exercising and really not doing any physical activity. Patient also indicates that both her sons have the factor V Leiden mutation in which they have both had blood clots in the past. 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 She has not had any recurrence. - Diagnosis (1) Bilateral pulmonary embolism Inpatient Certification: I certify that the inpatient services were ordered in accordance with Medicare regulations governing the order. This includes certification that hospital inpatient services are reasonable and necessary and in the case of services not specified as inpatient-only under 42 CFR 419.22(n), that they are appropriately provided as inpatient services in accordance to with the 2-midnight benchmark under 43 CFR 412.3(e) Estimated Total Length of Stay (Days): 2 Plans for Post Hospital Care: Not yet determined Review of Systems All other systems reviewed negative except as stated in HPI Cardiovascular: Reports chest pain, Reports shortness of breath, Reports shortness of breath with activity PMFSH - History History Provided By: Patient - Medical History Medical History: Medical History (Last Updated 04/17/18 @ 09:03 by FLORENCE Morocho) Glaucoma HTN (hypertension) Paget disease of breast Breast cancer, left History of ulcerative colitis Ileostomy in place - Surgical History Surgical History: Surgical History (Last Updated 04/17/18 @ 09:03 by FLORENCE Morocho) History of appendectomy History of cataract surgery History of hysterectomy History of tonsillectomy Hx of tonsillectomy - Family History Family History: Family History (Last Updated 04/17/18 @ 08:55 by FLORENCE Morocho) Father History of lung cancer Mother History of stroke - Tobacco History Second Hand Smoke Exposure: No Tobacco Use In Past 30 Days: No Smoking Status: Never smoker - Alcohol History How Often Do You Have a Drink Containing Alcohol: Never - Substance Use History Substance History: No History of Abuse - Travel History [facility] Within the Last 8 Weeks: No Recent Travel Out of the Country Within the Last 8 Weeks: No - Immunization History Tetanus Immunization: Unable to Assess Hx Influenza Vaccine This Season: No Medications and Allergies Active Medications: Active Medications Acetaminophen (Tylenol) 650 mg PO Q4H PRN PRN Reason: Temp > 100.4 Last Admin: 04/17/18 04:32 Dose: 650 mg Al Hydroxide/Mg Hydroxide (Milk Of Magnesia Liq) 30 ml PO Q12H PRN PRN Reason: Mild Constipation Bisacodyl (Dulcolax Supp) 10 mg RECTAL DAILY PRN PRN Reason: SEVERE CONSITIPATION Heparin Sodium/Dextrose (Heparin/D5w 25,000 U/250 Ml) 25,000 unit in 250 mls @ 0 mls/hr IV.CONT TITRATE PRN; Protocol PRN Reason: Per Protocol Last Titration: 04/17/18 05:30 Dose: 1,000 units/hr, 10 mls/hr Ceftriaxone Sodium 1,000 mg/ (Sodium Chloride) 100 mls @ 200 mls/hr IV.SIG Q24H SHELTON Last Infusion: 04/17/18 00:35 Dose: Infused Lactulose (Lactulose Liq) 30 ml PO DAILY PRN PRN Reason: SEVERE CONSITIPATION Ondansetron HCl (Zofran Inj) 4 mg IV.PUSH Q6H PRN PRN Reason: NAUSEA OR VOMITING Senna/Docusate Sodium (Jazmine-Colace) 1 tab PO BID SHELTON Last Admin: 04/17/18 08:46 Dose: Not Given Sennosides (Senokot) 17.2 mg PO Q12H PRN PRN Reason: Moderate Constipation Allergies Allergy/AdvReac Type Severity Reaction Status Date / Time metronidazole Allergy Severe EYE/MOUTH Verified 04/16/18 18:30 SWELLING Home Medications Medication Instructions Recorded Confirmed Type amlodipine 5 mg PO HS 04/02/18 04/16/18 History pravastatin 40 mg PO HS 04/02/18 04/16/18 History latanoprost 1 drp OPHTHALMIC (EYE) QPM 04/16/18 04/16/18 History Exam Vital signs: Vital Signs 04/16/18 18:28 04/16/18 19:23 04/16/18 21:30 Temperature 98.4 F 98.2 F Pulse Rate 118 H 115 H 87 Respiratory Rate 20 20 20 Blood Pressure 139/71 148/85 H 142/74 H Pulse Oximetry 92 L 95 94 L 04/16/18 23:32 04/17/18 00:00 04/17/18 02:25 Temperature 96.4 F L Pulse Rate 86 85 Respiratory Rate 20 18 Blood Pressure 127/62 Pulse Oximetry 100 04/17/18 08:00 04/17/18 08:12 Temperature 98.4 F Pulse Rate 85 87 Respiratory Rate 16 Blood Pressure 122/62 Pulse Oximetry 92 L Intake & Output 04/16/18 04/17/18 04/17/18 18:59 06:59 18:59 Intake Total 1669 / 1669 Balance 1669 / 1669 Weight 71.1 kg 72 kg Intake: IV 1189 / 1189 Heparin/D5W 25,000 U/250 mL 25, 89 / 89 000 unit In 250 ml @ Per Protocol IV.CONT TITRATE PRN Rx #:[id number] NS Inj 1,000 ML @ Wide Open IV. 1000 / 1000 SIG BOLUS ONE Rx#:[id number] Rocephin Inj 1,000 MG In NS Inj 100 / 100 100 ML @ 200 mls/hr IV.SIG Q24H SHELTON Rx#:[id number] Oral 480 / 480 Other: # Voids 1 Weight On Admission 71 kg Narrative: GENERAL: Well-developed, well-nourished, in no acute distress. alert and orientated HEENT: Head is normocephalic without any lesions or masses noted. Facial features are symmetric. Eyes: Pupils equal round reactive to light. Extraocular muscles are intact. Conjunctivae were clear. Oropharyngeal: Pharynx without any erythema edema. Tongue is midline without deviation. Buccal mucosa is moist without any masses or lesions NECK: Supple without any masses. Trachea midline no deviation. No JVD, no bruits are appreciated CARDIAC: Regular rhythm, regular rate. S1/S2 are heard. No murmurs gallops or rubs. LUNGS: Clear to auscultation bilaterally. No wheeze, rhonchi or rales. No use of accessory muscles on inspiration or expiration. ABDOMEN: Soft, nontender. Nondistended. Bowel sounds heard in all 4 quadrants. No organomegaly or masses. Negative rebound, negative guarding EXTREMITIES: No edema, pulses are equal bilaterally. No cyanosis or clubbing NEUROLOGY: Mood and affect appear appropriate. Cranial nerves II through XII grossly intact. Muscle strength 5/5 in upper and lower extremities bilaterally. Deep tendon reflexes are 2+ in upper and lower extremities bilaterally. Results - Labs CBC & Chem 7: 04/17/18 03:34 04/17/18 03:34 Labs: Laboratory Results - last 24 hr 04/16/18 04/16/18 04/16/18 19:10 19:10 19:10 CBC w Diff Auto diff final WBC 10.6 RBC 4.91 Hgb 14.2 Hct 42.7 MCV 87.0 MCH 28.9 MCHC 33.2 RDW 14.2 Plt Count 216 MPV 7.4 Neut % (Auto) 74.0 H Lymph % (Auto) 13.6 [place] % (Auto) 11.3 H Eos % (Auto) 0.6 Baso % (Auto) 0.5 Neut # (Auto) 7.8 H Lymph # (Auto) 1.4 [place] # (Auto) 1.2 H Eos # (Auto) 0.1 Baso # (Auto) 0.1 WBC Differential . Differential Comment . PT 11.1 INR 1.1 APTT 24.5 D-Dimer Quant (PE/DVT) Sodium 140 Potassium 3.9 Chloride 106 Carbon Dioxide 23.1 Anion Gap 11 BUN 16 Creatinine 1.10 H Estimated GFR 49 L Random Glucose 115 H Lactic Acid Calcium 9.3 Total Bilirubin 0.9 AST 22 ALT 25 Alkaline Phosphatase 68 Total Creatine Kinase 47 Troponin I Less than 0.02 L B-Natriuretic Peptide Total Protein 7.8 Albumin 3.3 L Amylase 59 Lipase 196 Urine Color Urine Clarity Urine pH Ur Specific [place] Urine Protein Urine Glucose (UA) Urine Ketones Urine Occult Blood Urine Nitrate Urine Bilirubin Urine Ictotest Urine Urobilinogen Ur Leukocyte Esterase Urine RBC Urine WBC Urine WBC Clumps Ur Squamous Epith Cells Urine Bacteria Urine Mucus Micro UA Comment Ur Microscopic Review Urine Culture Comments 04/16/18 04/16/18 04/16/18 19:10 19:10 19:15 CBC w Diff WBC RBC Hgb Hct MCV MCH MCHC RDW Plt Count MPV Neut % (Auto) Lymph % (Auto) [place] % (Auto) Eos % (Auto) Baso % (Auto) Neut # (Auto) Lymph # (Auto) [place] # (Auto) Eos # (Auto) Baso # (Auto) WBC Differential Differential Comment PT INR APTT D-Dimer Quant (PE/DVT) 12.73 H Sodium Potassium Chloride Carbon Dioxide Anion Gap BUN Creatinine Estimated GFR Random Glucose Lactic Acid 1.6 Calcium Total Bilirubin AST ALT Alkaline Phosphatase Total Creatine Kinase Troponin I B-Natriuretic Peptide Total Protein Albumin Amylase Lipase Urine Color [place] H Urine Clarity Clear Urine pH 6.0 Ur Specific [place] Greater/equal 1.030 Urine Protein 100 H Urine Glucose (UA) Negative Urine Ketones 15 H Urine Occult Blood Moderate H Urine Nitrate Positive H Urine Bilirubin Negative Urine Ictotest Negative Urine Urobilinogen 1.0 Ur Leukocyte Esterase Trace H Urine RBC 0-3 Urine WBC 21-50 H Urine WBC Clumps Few H Ur Squamous Epith Cells 0-5 Urine Bacteria Few H Urine Mucus Many H Micro UA Comment Culture indicated Ur Microscopic Review Microscopic reviewed Urine Culture Comments Culture indicated 04/16/18 04/17/18 04/17/18 19:15 03:34 03:34 CBC w Diff Auto diff final WBC 10.8 RBC 4.28 Hgb 12.3 Hct 37.5 MCV 87.6 MCH 28.8 MCHC 32.9 RDW 14.3 Plt Count 174 MPV 7.3 Neut % (Auto) 79.5 H Lymph % (Auto) 10.1 [place] % (Auto) 9.4 H Eos % (Auto) 0.0 Baso % (Auto) 1.0 Neut # (Auto) 8.6 H Lymph # (Auto) 1.1 [place] # (Auto) 1.0 H Eos # (Auto) 0.0 Baso # (Auto) 0.1 WBC Differential . Differential Comment . PT 11.7 H INR 1.2 APTT 116.1 H* D D-Dimer Quant (PE/DVT) Sodium Potassium Chloride Carbon Dioxide Anion Gap BUN Creatinine Estimated GFR Random Glucose Lactic Acid Calcium Total Bilirubin AST ALT Alkaline Phosphatase Total Creatine Kinase Troponin I B-Natriuretic Peptide 24 Total Protein Albumin Amylase Lipase Urine Color Urine Clarity Urine pH Ur Specific [place] Urine Protein Urine Glucose (UA) Urine Ketones Urine Occult Blood Urine Nitrate Urine Bilirubin Urine Ictotest Urine Urobilinogen Ur Leukocyte Esterase Urine RBC Urine WBC Urine WBC Clumps Ur Squamous Epith Cells Urine Bacteria Urine Mucus Micro UA Comment Ur Microscopic Review Urine Culture Comments 04/17/18 04/17/18 03:34 07:10 CBC w Diff WBC RBC Hgb Hct MCV MCH MCHC RDW Plt Count MPV Neut % (Auto) Lymph % (Auto) [place] % (Auto) Eos % (Auto) Baso % (Auto) Neut # (Auto) Lymph # (Auto) [place] # (Auto) Eos # (Auto) Baso # (Auto) WBC Differential Differential Comment PT INR APTT 68.9 H D D-Dimer Quant (PE/DVT) Sodium 141 Potassium 3.8 Chloride 106 Carbon Dioxide 25.7 Anion Gap 9 BUN 15 Creatinine 0.74 Estimated GFR 77 L Random Glucose 122 H Lactic Acid Calcium 8.4 L D Total Bilirubin AST ALT Alkaline Phosphatase Total Creatine Kinase Troponin I B-Natriuretic Peptide Total Protein Albumin Amylase Lipase Urine Color Urine Clarity Urine pH Ur Specific Brewer Urine Protein Urine Glucose (UA) Urine Ketones Urine Occult Blood Urine Nitrate Urine Bilirubin Urine Ictotest Urine Urobilinogen Ur Leukocyte Esterase Urine RBC Urine WBC Urine WBC Clumps Ur Squamous Epith Cells Urine Bacteria Urine Mucus Micro UA Comment Ur Microscopic Review Urine Culture Comments - Imaging Impressions Abdomen/Pelvis CT 04/16/18 19:35 CONCLUSION: 1. No acute CT findings to explain patient's right upper quadrant abdominal pain. 2. Status post near total colectomy with right lower quadrant ileostomy in place. No evidence for bowel obstruction. 3. Dominant 3.4 cm cyst in the superior pole the right kidney with additional subcentimeter bilateral renal cystic lesions which are too small to fully characterize. 4. Additional ancillary findings, as above. Chest CTA 04/16/18 19:35 CONCLUSION: 1. Bilateral pulmonary emboli. 2. Minimal bilateral pleural effusions. 3. Mild hiatal hernia. Caprini VTE Risk Assessment Caprini VTE Risk Assessment: Moderate/High Risk (score >= 2) Caprini Risk Assessment Model: Point Value = 1 Point Value = 2 Point Value = 3 Point Value = 5 Age 41-60 Minor surgery BMI > 25 kg/m2 Swollen legs Varicose veins or History of unexplained or recurrent spontaneous Oral contraceptives or hormone replacement Sepsis (< 1 month) Serious lung disease, including pneumonia (< 1 month) Abnormal pulmonary function Acute myocardial infarction Congestive heart failure (< 1 month) History of inflammatory bowel disease Medical patient at bed rest Age 61-74 Arthroscopic surgery Major open surgery (> 45 min) Laparoscopic surgery (> 45 min) Malignancy Confined to bed (> 72 hours) Immobilizing plaster cast Central venous access Age >= 75 History of VTE Family history of VTE Factor V Leiden Prothrombin [id number] Lupus anticoagulant Anticardiolipin antibodies Elevated serum homocysteine Heparin-induced thrombocytopenia Other congenital or acquired thrombophilia Stroke (< 1 month) Elective arthroplasty Hip, pelvis, or leg fracture Acute spinal cord injury (< 1 month) Prophylaxis Regimen: Total Risk Factor Score Risk Level Prophylaxis Regimen 0-1 Low Early ambulation 2 Moderate Order ONE of the following: *Sequential Compression Device (SCD) *Heparin 5000 units SQ BID 3-4 Higher Order ONE of the following medications: *Heparin 5000 units SQ TID *Enoxaparin/Lovenox 40 mg SQ daily (WT < 150 kg, CrCl > 30 mL/min) *Enoxaparin/Lovenox 30 mg SQ daily (WT < 150 kg, CrCl > 10-29 mL/min) *Enoxaparin/Lovenox 30 mg SQ BID (WT < 150 kg, CrCl > 30 mL/min) AND/OR *Sequential Compression Device (SCD) 5 or more Highest Order ONE of the following medications: *Heparin 5000 units SQ TID (Preferred with Epidurals) *Enoxaparin/Lovenox 40 mg SQ daily (WT < 150 kg, CrCl > 30 mL/min) *Enoxaparin/Lovenox 30 mg SQ daily (WT < 150 kg, CrCl > 10-29 mL/min) *Enoxaparin/Lovenox 30 mg SQ BID (WT < 150 kg, CrCl > 30 mL/min) AND *Sequential Compression Device (SCD) Assessment and Plan - Assessment (1) Bilateral pulmonary embolism Code(s): I26.99 - Other pulmonary embolism without acute cor pulmonale Status : Acute - Plan Bilateral pulmonary emboli -72 year-old female presented originally with shortness of breath, dyspnea on exertion, right-sided chest discomfort -Patient with increased risk factors to include recent sedentary lifestyle, intra-articular steroid injections, recent fall, family history of factor V Leiden mutation -Patient currently on heparin IV for anticoagulation, patient is requesting Eliquis for oral anticoagulation -Hematology consulted for further recommendations -Employment Officer consulted -Obtain hypercoagulable panel Urinary tract infection -Continue monitor urine culture -Start Bactrim DS twice daily hypertension, hyper lipidemia -Home medication will be continued DVT prevention -Patient is on heparin IV
--- NOTE | 2018-04-17 10:30 | ECHRPT ---
Indication: Heart Failure CONCLUSIONS No evidence of thromboembolic source identified. Consider MISA for further evaluation. The left ventricular systolic function is normal with an estimated ejection fraction in the range of 55-60%. There is mild tricuspid valve regurgitation. The estimated pulmonary arterial pressure is 51 mmHg. BP: / HR: Rhythm: MEASUREMENTS (Male / Female) Normal Values Technical Quality:Fair 2D ECHO LV Diastolic Diameter PLAX 4.1 cm 4.2 - 5.9 / 3.9 - 5.3 cm LV Systolic Diameter PLAX 2.5 cm IVS Diastolic Thickness 0.9 cm 0.6 - 1.0 / 0.6 - 0.9 cm LVPW Diastolic Thickness 0.9 cm 0.6 - 1.0 / 0.6 - 0.9 cm LV Relative Wall Thickness 0.4 RV Internal Dim ED PLAX 3.3 cm LVOT Diameter 2.0 cm Aortic Root Diameter 2.7 cm LA Systolic Diameter LX 3.5 cm 3.0 - 4.0 / 2.7 - 3.8 cm M-MODE AV Cusp Separation MM 2.0 cm DOPPLER AV Peak Velocity 128.0 cm/s AV Peak Gradient 6.6 mmHg LVOT Peak Velocity 111.0 cm/s LVOT Peak Gradient 4.9 mmHg AV Area Cont Eq pk 2.7 cm Mitral E Point Velocity 85.5 cm/s Mitral A Point Velocity 128.0 cm/s Mitral E to A Ratio 0.7 LV E' Lateral Velocity 9.7 cm/s Mitral E to LV E' Lateral Ratio 8.9 LV E' Septal Velocity 7.9 cm/s Mitral E to LV E' Septal Ratio 10.8 TR Peak Velocity 320.0 cm/s TR Peak Gradient 41.0 mmHg Right Atrial Pressure 10.0 mmHg Pulmonary Artery Systolic Pressu 51.0 mmHg Right Ventricular Systolic Press 51.0 mmHg PV Peak Velocity 92.3 cm/s PV Peak Gradient 3.4 mmHg FINDINGS LEFT VENTRICLE Normal left ventricular size. Wall thickness is normal. The left ventricular systolic function is normal with an estimated ejection fraction in the range of 55-60%. RIGHT VENTRICLE Normal right ventricular size and systolic function. LEFT ATRIUM The left atrial size is normal. RIGHT ATRIUM The right atrial size is normal. ATRIAL SEPTUM Normal atrial septal thickness without atrial level shunting by limited color doppler interrogation. AORTA The aortic root and proximal ascending aorta are normal in size on limited imaging. MITRAL VALVE [id number] mitral valve regurgitation. AORTIC VALVE Trileaflet aortic valve. TRICUSPID VALVE There is mild tricuspid valve regurgitation. The estimated pulmonary arterial pressure is 51 mmHg. PULMONARY VALVE No pulmonary valve regurgitation or stenosis. VESSELS The inferior vena cava is normal in size. PERICARDIUM No pericardial effusion. Rafa Dominguez MD (Electronically Signed) Final Date:17 April 2018 10:29
--- NOTE | 2018-04-17 17:32 | MB ---
cc: Black Bill MD,Radha Son MD DATE: 04/17/2018 REQUESTING PHYSICIAN: Dr. Koby Horan REASON FOR VISIT: Bilateral pulmonary emboli. HISTORY OF PRESENT ILLNESS: Ms. Lehman is a pleasant 72-year-old female with history of hypertension, hyperlipidemia, ulcerative colitis, status post colectomy and ileostomy. She also has history of Paget disease of the breast. She had a nipple removed and had radiation treatment. Normally, she is very active. She came to the hospital with sudden onset of pain in the right lower chest. CT scan of the abdomen was normal other than signs of previous near total colectomy. Next she had echocardiogram done, which shows ejection fraction is 55% to 60% and pulmonary arterial pressure is 51. She feels very comfortable, pain has eased off. She is currently on room air. PAST MEDICAL HISTORY: Significant for a history of hypertension, hyperlipidemia, glaucoma, history of cholecystectomy, ulcerative colitis, status post subtotal colectomy and ileostomy, history of Paget, disease of the breast, status post nipple removal and radiation treatment. MEDICATIONS: 1. Tylenol. 2. Ararat for pain. 3. Norvasc 5 mg a day. 4. Heparin IV drip. 5. Zofran p.r.n. 6. Jazmine-Colace twice a day. 7. Bactrim DS 1 tablet every 12 hours. ALLERGIES: SHE IS ALLERGIC TO FLAGYL. SOCIAL HISTORY: She has a remote history of smoking when she was young. No alcohol abuse. 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 FAMILY HISTORY: She has 2 children, 1 son has embolism and also has factor V Leiden mutation. REVIEW OF SYSTEMS: Normally, she is active. Weight is stable. No sz. PHYSICAL EXAMINATION: GENERAL: This is a pleasant, elderly female, not in any acute distress. VITAL SIGNS: Blood pressure 130/71, heart rate 80, respirations 16, temperature 97.4, saturation 94% on room air. HEENT: Pupils are equal and reactive to light. Oral mucosa and nasal mucosa normal. NECK: No JVD noted. CHEST: Bilateral good air entry. No rhonchi. HEART: S1, S2 normal. ABDOMEN: Soft, nondistended. Bowel sounds present. She has ileostomy. EXTREMITIES: No edema. IMPRESSION: 1. Bilateral pulmonary emphysema, small pleural effusion. 2. Ulcerative colitis, status post ileostomy. 3. History of Paget disease of the breast. 4. Hypertension. PLAN: Discussed with the patient and her . She will be maintained on a heparin drip and she will be transitioned to a newer oral anticoagulant. I discussed with the patient and her the risks, benefits and the risk of anticoagulation and they understand well. She is currently stable on room air. Monitor her pleural effusion. We will check her Factor V mutation. Further treatment will depend upon the course in the hospital. Thank you Dr. Horan for this consult. Black Bill MD ADA/ct/ll , 04:50 PM , 04:58 PM MTDGhassan
--- NOTE | 2018-04-17 19:16 | MB ---
cc: Anna Lopez MD DATE: 04/17/2018 CHIEF COMPLAINT: Pulmonary embolism. HISTORY OF PRESENT ILLNESS: Ms. Lehman is a 72-year-old lady with history of hypertension, hyperlipidemia, ulcerative colitis, status post colectomy with ileostomy placement, as well as Paget disease of the breast, status post surgery and radiation therapy. She was admitted to the hospital on 04/16/2018 with a 2-day history of worsening shortness of breath, as well as right-sided chest pain. CTA showed bilateral pulmonary embolism, minimal bilateral pleural effusions, and mild hiatal hernia. CT scan of the abdomen and pelvis with status post near total colectomy with right lower quadrant ileostomy in place. No evidence for bowel obstruction, dominant 3.4 cm cyst on the superior pole in the right kidney with adjacent subcentimeter bilateral renal cystic lesions, which are too small to fully characterize. PAST MEDICAL HISTORY: 1. Hypertension. 2. Hyperlipidemia. 3. Ulcerative colitis. 4. Paget disease of the breast. PAST SURGICAL HISTORY: Hysterectomy, ileostomy, cataract surgery, tonsillectomy, breast surgery. GYNECOLOGIC HISTORY: She has had 2 pregnancies with no issues. No clotting during the . SOCIAL HISTORY: She lives in [place]. She has rare alcohol use. Denies any tobacco use. FAMILY HISTORY: Her son is homozygous for factor V Leiden. He has a clot and is currently on Eliquis therapy. PHYSICAL EXAMINATION: VITAL SIGNS: Temperature 97.4, pulse 80, respiratory rate 16, blood pressure 130/71. GENERAL: Well-developed, well-nourished lady, in no distress, sitting comfortably in bed. HEENT: Normocephalic, atraumatic. Eyes: PERRLA. EOMI. NECK: Supple. No palpable lymphadenopathy. CARDIOVASCULAR: Regular rate and rhythm. No murmurs. RESPIRATORY: Clear to auscultation bilaterally. ABDOMEN: Soft. No tenderness or masses. EXTREMITIES: No edema. NEUROLOGIC: Grossly nonfocal. PSYCHIATRIC: Appropriate mood and affect. ASSESSMENT AND PLAN: Bilateral pulmonary embolism. Echocardiogram with no evidence of right heart strain. She is currently on heparin drip. Discussed options for outpatient anticoagulation with the patient and her . Discussed options to include warfarin versus Xarelto versus apixaban. Discussed risks versus benefits of each medication including reversal agents. Discussed that the major side effect of any blood thinner is bleeding including devastating bleeding in the brain and spinal cord. The patient voiced understanding. She will need to be on indefinite anticoagulation therapy as her clot is unprovoked. Her son has a history positive for factor V Leiden. Will followup factor V Leiden. Hypercoagulable workup has been ordered; however, in this situation, it would not change our final outcome. We will followup the results. The patient reports that she would like to be discharged home on Eliquis; however, she would like to discuss with case management to ensure that this medication would not be too expensive. MD SOLITARIO Villalobos/ , 06:53 PM , 07:01 PM
[2018-04-17 20:01] VITALS: RESP 18
[2018-04-17] MEDS ORDERED: amLODIPine 5 MG Tablet PO SCH (21:00)
[2018-04-18 06:49] LABS: Hematocrit 36.8 % (35.0-46.0); Hemoglobin 11.9 gm/dL (11.6-15.3); Mean Corpuscular HGB Conc 32.4 % (32.0-36.0); Mean Corpuscular Hemoglobin 28.4 pg (27.0-34.0); Mean Corpuscular Volume 87.7 fL (80.0-100.0); Mean Platelet Volume 7.9 fL (7.0-11.0); Platelet Count 211 th/mm3 (150-450); Red Blood Count 4.19 mil/mm3 (4.00-5.30); White Blood Count 6.5 th/mm3 (4.0-11.0)
[2018-04-18] MEDS: Senna/Docusate Sodium 8.6/50 MG Tablet PO SCH (08:57)
--- NOTE | 2018-04-18 11:23 | P.PN ---
Subjective Interval history: 72-year-old female who is seen and examined today for follow-up on pulmonary emboli. Patient is doing well. Still having pain in her right side of her chest. Disc asked with her and her about anticoagulation with Eliquis. Patient does understand. The would like to find out if there are insurance will cover the medication. Vital signs are stable. Patient remains afebrile. Physical Exam Vital signs: Vital Signs 04/17/18 11:59 04/17/18 16:00 04/17/18 20:00 Temperature 98.0 F 97.4 F L 97.4 F L Pulse Rate 81 80 98 H Respiratory Rate 16 18 Blood Pressure 137/80 130/71 147/67 H Pulse Oximetry 94 L 94 L 94 L 04/18/18 00:00 04/18/18 04:00 04/18/18 08:00 Temperature 97.6 F 97.0 F L 97.4 F L Pulse Rate 85 81 87 Respiratory Rate 18 Blood Pressure 140/62 130/82 133/68 Pulse Oximetry 94 L 93 L 93 L Intake & Output 04/17/18 04/18/18 04/18/18 18:59 06:59 18:59 Intake Total 960 / 960 Balance 960 / 960 Weight 72.4 kg Intake: Oral 960 / 960 Other: # Voids 6 3 # Bowel Movements 0 Narrative: GENERAL: Well-developed, well-nourished, in no acute distress. alert and orientated HEENT: Head is normocephalic without any lesions or masses noted. Facial features are symmetric. Eyes: Extraocular muscles are intact. Conjunctivae were clear. NECK: Supple without any masses. Trachea midline no deviation. No JVD, CARDIAC: Regular rhythm, regular rate. S1/S2 are heard. No murmurs gallops or rubs. LUNGS: Clear to auscultation bilaterally. No wheeze, rhonchi or rales. No use of accessory muscles on inspiration or expiration. ABDOMEN: Soft, nontender. Nondistended. Bowel sounds heard in all 4 quadrants. No organomegaly or masses. Negative rebound, negative guarding EXTREMITIES: No edema, pulses are equal bilaterally. No cyanosis or clubbing NEUROLOGY: Mood and affect appear appropriate. Cranial nerves II through XII grossly intact. Moving all extremities, speech is clear Results - Labs CBC & Chem 7: 04/18/18 05:25 04/17/18 03:34 Laboratory Results - last 24 hr 04/17/18 04/17/18 04/17/18 12:20 12:20 18:40 WBC RBC Hgb Hct MCV MCH MCHC RDW Plt Count MPV APTT 54.2 H D 47.1 H Protein C Antigen Cancelled Protein S Activity Cancelled Factor V Leiden Mutat Cancelled Factor V Leiden Interp Cancelled Fact V Leiden Review By Cancelled Anti-Cardiolipin IgG Ab Cancelled Anti-Cardiolipin IgM Ab Cancelled 04/18/18 04/18/18 05:25 05:25 WBC 6.5 RBC 4.19 Hgb 11.9 Hct 36.8 MCV 87.7 MCH 28.4 MCHC 32.4 RDW 14.0 Plt Count 211 MPV 7.9 APTT 55.1 H Protein C Antigen Protein S Activity Factor V Leiden Mutat Factor V Leiden Interp Fact V Leiden Review By Anti-Cardiolipin IgG Ab Anti-Cardiolipin IgM Ab Microbiology 04/16/18 19:15 Clean Catch Urine Urine Culture - Final 50-100,000 cfu/mL mixed michelle (probable contaminants ) 04/16/18 19:05 Blood - Peripheral Aerobic Blood Culture - Preliminary No growth in 2 days 04/16/18 19:05 Blood - Peripheral Anaerobic Blood Culture - Preliminary No growth in 2 days 04/16/18 19:10 Blood - Peripheral Aerobic Blood Culture - Preliminary No growth in 2 days 04/16/18 19:10 Blood - Peripheral Anaerobic Blood Culture - Preliminary No growth in 2 days Assessment and Plan - Assessment (1) Bilateral pulmonary embolism Code(s): I26.99 - Other pulmonary embolism without acute cor pulmonale Status : Acute - Plan Bilateral pulmonary emboli -72 year-old female presented originally with shortness of breath, dyspnea on exertion, right-sided chest discomfort -Patient with increased risk factors to include recent sedentary lifestyle, intra-articular steroid injections, recent fall, family history of factor V Leiden mutation -Patient currently on heparin IV for anticoagulation, heparin IV was discontinued and patient was started on Eliquis 10 mg -Hematology consulted for further recommendations, who recommended anticoagulation with Coumadin, Eliquis or Xarelto. Indicated patient will have lifelong anticoagulation -Crystalizer Tender consulted -Awaiting hypercoagulable panel -Patient checked with her insurance company indicated that Eliquis would be affordable to use. Patient was started on Eliquis and prescription was sent to her pharmacy upon discharge -Patient will need to follow-up with hematology for results of her hypercoagulability workup Urinary tract infection -Urine culture indicating 50-100,000 colonies of mixed contaminants -Discontinue antibiotics hypertension, hyper lipidemia -Home medication will be continued DVT prevention -Patient currently on Eliquis at time of discharge Discharge Planning: Discharge home in stable condition Activity: Ad flores. Diet: Healthy heart diet Medication per medication reconciliation Follow-up with primary medical doctor in 1 week
[2018-04-18 12:33] VITALS: BP 121/77; PULSE 88; TEMP 96.3; O2SAT 92
[2018-04-21 13:54] LABS: Dil Russell Viper Venom Conf ( ND (NEGATIVE); Dil Russell Viper Venom Time M ND (CORRECTED); Lupus Anticoagulant PTT Screen 95 seconds (< OR = 40)
[2018-04-21 23:52] LABS: Homocysteine (Cardiovascular) 6.2 umol/L (<10.4)
[2018-04-22 03:51] LABS: Activated Protein C Resistance 1.5 ratio (> OR = 2.1)
[2018-04-25 15:55] LABS: Factor V Leiden Mutation Heterozygous (Negative); Protein C Antigen 129 % (70-150)
== END 2018-04-18 13:00 | disposition home or self-care (01) ==
LOC: PHED 18:25 → PHEDA 21:25 → PH3 22:33
PROVIDERS: ADMIT Hospitalist; ATTEND Hospitalist